=== PATIENT | female | born 1970 | race Caucasian/White ===

== ENCOUNTER → 2017-07-28 | Outpatient (CLI) | payer BC ==
[2017-07-28 11:52] LABS: HEMATOCRIT 36.7 % (37.0-47.0); HEMOGLOBIN 11.4 g/dL (12.5-16.0); MEAN PLATELET VOLUME 9.8 fl (7.4-10.4); RED BLOOD COUNT 4.12 M/mm3 (4.10-5.30); RED CELL DISTRIBUTION WIDTH 14.3 % (11.5-14.5); WHITE BLOOD COUNT 9.6 K/mm3 (4.8-10.8)
[2017-07-28 11:57] LABS: BUN/CREATININE RATIO 15.3 (6.0-26.0); CALCIUM 8.9 mg/dL (8.4-10.2); POTASSIUM 4.1 mmol/L (3.6-5.0); TOTAL BILIRUBIN 0.4 mg/dL (0.2-1.3); TOTAL PROTEIN 7.8 g/dL (6.3-8.2)
== END ==
LOC: LAB 11:24
PROVIDERS: Family Medicine
DX: Z00.00 Encounter for general adult medical examination without abnormal findings (principal)

== ENCOUNTER → 2018-07-17 | Outpatient (CLI) | payer BC ==
[2018-07-17 17:18] LABS: EOS # 0.4 (0.04-0.40); EOS % 3.3 % (1.0-5.0); HEMOGLOBIN 11.7 g/dL (12.5-16.0); LYMPH# 3.3 (1.50-4.00); MEAN CELL VOLUME 90 fl (78-100); MEAN CORPUSCULAR HEMOGLOBIN 29 pg (27-31); MEAN CORPUSCULAR HGB CONC 32 g/dL (33-37); MEAN PLATELET VOLUME 9.7 fl (7.4-10.4); MONO # 0.8 (0.20-0.80); PLATELET COUNT 355 K/mm3 (130-400); RED CELL DISTRIBUTION WIDTH 14.4 % (11.5-14.5); WHITE BLOOD COUNT 12.5 K/mm3 (4.8-10.8)
[2018-07-17 17:40] LABS: ALBUMIN 4.5 g/dL (3.5-5.0); CALCIUM 9.7 mg/dL (8.4-10.2); TOTAL BILIRUBIN 0.3 mg/dL (0.2-1.3); TOTAL PROTEIN 7.9 g/dL (6.3-8.2)
== END ==
LOC: LAB 16:32
PROVIDERS: Family Medicine
DX: M17.0 Bilateral primary osteoarthritis of knee (principal); E66.3 Overweight; E55.9 Vitamin D deficiency, unspecified; R23.8 Other skin changes

== ENCOUNTER → 2019-07-27 | Outpatient (CLI) | payer BC ==
[2019-07-27 16:50] LABS: EOS # 0.4 (0.04-0.40); EOS % 3.5 % (1.0-5.0); HEMATOCRIT 38.3 % (37.0-47.0); HEMOGLOBIN 12.1 g/dL (12.5-16.0); MEAN CELL VOLUME 93 fl (78-100); MEAN CORPUSCULAR HEMOGLOBIN 29 pg (27-31); MEAN CORPUSCULAR HGB CONC 32 g/dL (33-37); MEAN PLATELET VOLUME 9.8 fl (7.4-10.4); MONO # 0.8 (0.20-0.80); NEU # 6.2 (1.40-6.50); PLATELET COUNT 370 K/mm3 (130-400); RED BLOOD COUNT 4.12 M/mm3 (4.10-5.30); RED CELL DISTRIBUTION WIDTH 13.7 % (11.5-14.5); WHITE BLOOD COUNT 10.3 K/mm3 (4.8-10.8)
[2019-07-27 17:31] LABS: ALBUMIN 4.2 g/dL (3.5-5.0)
[2019-07-27 17:32] LABS: CALCIUM 9.7 mg/dL (8.3-10.5)
[2019-07-27 17:36] LABS: TOTAL BILIRUBIN 0.2 mg/dL (0.2-1.2)
[2019-07-30 15:11] LABS: VITAMIN A 44.6 mcg/dL (())
[2019-07-30 21:30] LABS: VITAMIN E 19.9 mg/L (())
== END ==
LOC: LAB 16:12
PROVIDERS: Family Medicine
DX: Z00.00 Encounter for general adult medical examination without abnormal findings (principal); E78.5 Hyperlipidemia, unspecified; E55.9 Vitamin D deficiency, unspecified; Z91.018 Allergy to other foods

== ENCOUNTER → 2019-12-22 | Outpatient (CLI) | payer BC | LOC: RAD 09:00 | DX: M18.0 Bilateral primary osteoarthritis of first carpometacarpal joints (principal) ==

== ENCOUNTER → 2020-05-22 | Outpatient (CLI) | payer BC ==
[~2020-05-22] MED LIST: ADDERALL XR25 MG PO; AMBIEN10 MG PO; AUGMENTIN 875-1 EAC1 PO; DITROPAN 5MG TAB5 MG PO; EFFEXOR XR37.5 M2 PO; HYDROCODONE BIT1 T41 PO; PROPRANOLOL HCL80 M4 PO; VITAMIN D325 MC1 PO; ZOLOFT 50MG50 MG PO
[2020-05-22 13:38] LABS: EOS # 0.2 (0.04-0.40); EOS % 1.3 % (1.0-5.0); HEMOGLOBIN 12.3 g/dL (12.5-16.0); LYMPH# 2.8 (1.50-4.00); MEAN CELL VOLUME 95 fl (78-100); MEAN CORPUSCULAR HEMOGLOBIN 30 pg (27-31); MEAN CORPUSCULAR HGB CONC 32 g/dL (33-37); MEAN PLATELET VOLUME 9.6 fl (7.4-10.4); MONO # 0.9 (0.20-0.80); PLATELET COUNT 423 K/mm3 (130-400); RED BLOOD COUNT 4.11 M/mm3 (4.10-5.30); RED CELL DISTRIBUTION WIDTH 13.9 % (11.5-14.5); WHITE BLOOD COUNT 13.2 K/mm3 (4.8-10.8)
[2020-05-22 13:42] LABS: ALBUMIN 4.1 g/dL (3.5-5.0); POTASSIUM 4.9 mmol/L (3.5-5.1)
[2020-05-22 13:43] LABS: CALCIUM 9.6 mg/dL (8.3-10.5)
[2020-05-22 13:44] LABS: TOTAL PROTEIN 7.5 g/dL (6.4-8.3)
[2020-05-22 13:46] LABS: TOTAL BILIRUBIN 0.2 mg/dL (0.2-1.2)
[2020-05-22 13:51] LABS: MAGNESIUM 2.07 mg/dL (1.60-2.60)
[2020-05-22 13:56] LABS: NEU # 9.4 (1.40-6.50)
[2020-05-23 12:56] LABS: ANA SCREEN with REFLEX Negative (Negative)
== END ==
LOC: LAB 13:20
PROVIDERS: Family Medicine
DX: E55.9 Vitamin D deficiency, unspecified (principal); R53.83 Other fatigue; D72.829 Elevated white blood cell count, unspecified

== ENCOUNTER → 2020-07-10 | Outpatient (CLI) | payer BC | LOC: RAD 10:12 | DX: M25.474 Effusion, right foot (principal) ==

== ENCOUNTER 2020-07-13 21:33 | Emergency (ER) | payer BC ==
[2020-07-13] MEDS ORDERED: VITAMIN D325 MC1 PO (21:39)
[2020-07-13] MEDS ORDERED: PROPRANOLOL HCL80 M4 PO (21:41)
[2020-07-13] MEDS ORDERED: ADDERALL XR25 MG PO (21:41)
[2020-07-13] MEDS ORDERED: ZOLOFT 50MG50 MG PO (21:42)
[2020-07-13] MEDS ORDERED: EFFEXOR XR37.5 M2 PO (21:42)
[2020-07-13] MEDS ORDERED: HYDROCODONE BIT1 T41 PO (21:43)
[2020-07-13] MEDS ORDERED: DITROPAN 5MG TAB5 MG PO (21:44)
[2020-07-13] MEDS ORDERED: AMBIEN10 MG PO (21:45)
[2020-07-13] MEDS ORDERED: AUGMENTIN 875-1 EAC1 PO (22:59)
[2020-07-13 23:10] VITALS: BP 154/86
== END 2020-07-13 23:11 | disposition home or self-care (01) ==
LOC: ED 21:33
DX: S61.211A Laceration without foreign body of left index finger without damage to nail, initial encounter (principal); F32.9 Major depressive disorder, single episode, unspecified; F41.9 Anxiety disorder, unspecified; Z79.899 Other long term (current) drug therapy; W54.0XXA Bitten by dog, initial encounter; Y92.009 Unspecified place in unspecified non-institutional (private) residence as the place of occurrence of the external cause

== ENCOUNTER → 2020-12-20 | Outpatient (CLI) | payer BC | LOC: RAD 11:18 | DX: M25.531 Pain in right wrist (principal); M25.532 Pain in left wrist ==

== ENCOUNTER → 2021-06-14 | Outpatient (CLI) | payer BC | LOC: RAD 10:00 | DX: M50.323 Other cervical disc degeneration at C6-C7 level (principal); M54.10 Radiculopathy, site unspecified; R59.0 Localized enlarged lymph nodes ==

== ENCOUNTER 2021-07-17 06:37 | Emergency (ER) | payer BC ==
[~2021-07-17] VITALS: Ht 157.5 cm; Wt 109.9 kg
[2021-07-17] MEDS ORDERED: MOBIC15 M1 PO (07:14)
[2021-07-17] MEDS ORDERED: NATURAL IRON65 MG PO (07:15)
[2021-07-17] MEDS ORDERED: ZESTRIL10 M1 PO (07:15)
[2021-07-17 07:52] LABS: BASO # 0.04 K/mm3 (0.02-0.10); EOS # 0.46 K/mm3 (0.04-0.40); HEMATOCRIT 33.5 % (37.0-47.0); HEMOGLOBIN 10.5 g/dL (12.5-16.0); LYMPH# 1.59 K/mm3 (1.50-4.00); MEAN CELL VOLUME 93 fl (78-100); MEAN CORPUSCULAR HEMOGLOBIN 29 pg (27-31); MEAN CORPUSCULAR HGB CONC 31 g/dL (33-37); MEAN PLATELET VOLUME 10.3 fl (7.4-10.4); MONO # 0.61 K/mm3 (0.20-0.80); NEU # 6.55 K/mm3 (1.40-6.50); PLATELET COUNT 323 K/mm3 (130-400); RED BLOOD COUNT 3.59 M/mm3 (4.10-5.30); RED CELL DISTRIBUTION WIDTH 13.8 % (11.5-14.5); WHITE BLOOD COUNT 9.3 K/mm3 (4.8-10.8)
[2021-07-17 07:55] LABS: ALBUMIN 3.8 g/dL (3.5-5.0); POTASSIUM 3.9 mmol/L (3.5-5.1)
[2021-07-17 07:56] LABS: CALCIUM 8.9 mg/dL (8.3-10.5)
[2021-07-17 07:57] LABS: TOTAL PROTEIN 6.4 g/dL (6.4-8.3)
[2021-07-17 07:59] LABS: TOTAL BILIRUBIN 0.3 mg/dL (0.2-1.2)
[2021-07-17] MEDS ORDERED: ZOFRAN ODT4 MG PO (09:40)
[2021-07-17 09:55] VITALS: BP 155/87
== END 2021-07-17 09:55 | disposition home or self-care (01) ==
LOC: ED 06:37
PROVIDERS: Physician Assistant
DX: I10 Essential (primary) hypertension (principal); D64.9 Anemia, unspecified; Z91.14 Patient's other noncompliance with medication regimen

== ENCOUNTER → 2022-05-10 | Outpatient (CLI) | payer BC ==
[~2022-05-10] MED LIST changes: +MOBIC15 M1 PO; +NATURAL IRON65 MG PO; +ZESTRIL10 M1 PO; +ZOFRAN ODT4 MG PO
== END ==
LOC: LAB 17:49
DX: M54.50 Low back pain, unspecified (principal)

== ENCOUNTER → 2022-05-21 | Outpatient (CLI) | payer BC | LOC: RAD 10:22 → LAB 10:22 | DX: R05.9 Cough, unspecified (principal); R06.00 Dyspnea, unspecified ==

== ENCOUNTER → 2022-07-03 | Outpatient (CLI) | payer BC | LOC: LAB 08:55 | DX: J02.9 Acute pharyngitis, unspecified (principal) ==

== ENCOUNTER → 2023-04-16 | Outpatient (CLI) | payer BC ==
[2023-04-16 09:55] LABS: BASO # 0.06 K/mm3 (0.02-0.10); EOS # 0.32 K/mm3 (0.04-0.40); EOS % 3.7 % (1.0-5.0); HEMATOCRIT 36.5 % (37.0-47.0); HEMOGLOBIN 11.4 g/dL (12.5-16.0); MEAN CELL VOLUME 91 fl (78-100); MEAN CORPUSCULAR HEMOGLOBIN 29 pg (27-31); MEAN CORPUSCULAR HGB CONC 31 g/dL (33-37); MEAN PLATELET VOLUME 9.7 fl (7.4-10.4); MONO # 0.45 K/mm3 (0.20-0.80); NEU # 5.67 K/mm3 (1.40-6.50); PLATELET COUNT 373 K/mm3 (130-400); RED CELL DISTRIBUTION WIDTH 13.7 % (11.5-14.5); WHITE BLOOD COUNT 8.6 K/mm3 (4.8-10.8)
[2023-04-16 09:57] LABS: ALBUMIN 4.4 g/dL (3.5-5.0)
[2023-04-16 09:58] LABS: CALCIUM 9.4 mg/dL (8.3-10.5)
[2023-04-16 10:00] LABS: TOTAL PROTEIN 7.6 g/dL (6.4-8.3)
[2023-04-16 10:01] LABS: TOTAL BILIRUBIN 0.33 mg/dL (0.2-1.2)
== END ==
LOC: LAB 09:35
PROVIDERS: Nurse Practitioner
DX: Z00.00 Encounter for general adult medical examination without abnormal findings (principal); E55.9 Vitamin D deficiency, unspecified; E78.5 Hyperlipidemia, unspecified; M25.50 Pain in unspecified joint

== ENCOUNTER → 2024-06-09 | Outpatient (CLI) | payer OTHER ==
[2024-06-09 09:56] LABS: BASO # 0.03 K/mm3 (0.02-0.10); EOS # 0.29 K/mm3 (0.04-0.40); EOS % 2.8 % (1.0-5.0); HEMATOCRIT 37.5 % (37.0-47.0); HEMOGLOBIN 11.7 g/dL (12.5-16.0); LYMPH# 2.33 K/mm3 (1.50-4.00); MEAN CELL VOLUME 94 fl (78-100); MEAN CORPUSCULAR HEMOGLOBIN 29 pg (27-31); MEAN CORPUSCULAR HGB CONC 31 g/dL (33-37); MEAN PLATELET VOLUME 9.7 fl (7.4-10.4); MONO # 0.55 K/mm3 (0.20-0.80); PLATELET COUNT 388 K/mm3 (130-400); WHITE BLOOD COUNT 10.4 K/mm3 (4.8-10.8)
[2024-06-09 10:01] LABS: ALBUMIN 4.1 g/dL (3.5-5.0)
[2024-06-09 10:02] LABS: CALCIUM 9.3 mg/dL (8.3-10.5)
[2024-06-09 10:04] LABS: TOTAL PROTEIN 7.9 g/dL (6.4-8.3)
[2024-06-09 10:05] LABS: TOTAL BILIRUBIN 0.4 mg/dL (0.2-1.2)
== END ==
LOC: LAB 09:33
PROVIDERS: Family Medicine
DX: I10 Essential (primary) hypertension (principal); E55.9 Vitamin D deficiency, unspecified; E78.5 Hyperlipidemia, unspecified